=== PATIENT | female | born 1955 | race Caucasian/White ===

== ENCOUNTER 2017-10-03 19:15 | Inpatient (IN) | payer MEDICARE ==
[~2017-10-03] VITALS: Ht 165.1 cm; Wt 116.8 kg
[2017-10-03 00:40] VITALS: BP 139/61
[2017-10-03] MEDS ORDERED: GUAI100S7 PO (19:40)
[2017-10-03] MEDS ORDERED: FURO20TA2 PO (19:40)
[2017-10-03] MEDS ORDERED: PROT1TAB2 PO (19:40)
[2017-10-03] MEDS ORDERED: NADO20TA PO (19:40)
[2017-10-03] MEDS ORDERED: TRAM50TA2 PO (19:40)
[2017-10-03] MEDS ORDERED: LEVO100T5 PO (19:40)
[2017-10-03] MEDS ORDERED: SPIR100T PO (19:40)
[2017-10-03] MEDS ORDERED: MILKSUS5 PO (19:40)
[2017-10-03] MEDS ORDERED: FOLI5CAP PO (19:40)
[2017-10-03] MEDS ORDERED: LACT10SO29 PO (19:40)
[2017-10-03] MEDS ORDERED: VITATAB11 PO (19:40)
[2017-10-03 20:04] LABS: BASO % 0.2 % (0.0-1.0); EOS % 0.5 % (0.0-3.0); IMMATURE GRANULOCYTE % 1.1 % (0-0); LYMPH # 1.1 10^3/uL (1.5-4.5); LYMPH % 17.8 % (24.0-44.0); MEAN CORPUSCULAR HEMOGLOBIN 35.8 pg (27.0-33.0); MEAN CORPUSCULAR HGB CONC 34.4 g/dl (32.0-36.5); MEAN CORPUSCULAR VOLUME 104.1 fl (80.0-96.0); MONO # 0.9 10^3/uL (0.0-0.8); MONO % 14.5 % (0.0-5.0); NEUTROPHILS # 4.2 10^3/uL (1.8-7.7); NEUTROPHILS % 65.9 % (36.0-66.0); RED CELL DISTRIBUTION WIDTH 22.9 % (11.5-14.5); WHITE BLOOD COUNT 6.4 10^3/uL (4.0-10.0)
[2017-10-03 20:26] LABS: ABG BASE EXCESS 0.7 (-2.0-2.0); ABG HCO3 23.7 MEQ/L (22.0-26.0); ABG PARTIAL PRESSURE O2 75.6 mmHg (75.0-100.0); ABG STANDARD HCO3 25.1 MEQ/L (22.0-26.0); ABG TOTAL CO2 24.7 MEQ/L (23.0-31.0); ABG pH (ARTERIAL) 7.488 UNITS (7.350-7.450)
[2017-10-03 20:30] LABS: OSMOLALITY SERUM 292 MOSM/KG (280-301)
[2017-10-03 20:32] LABS: IMMATURE PLATELET FRACTION % 5.9 % (0.0-9.6); PLATELET COUNT, AUTOMATED 93 10^3/uL (150-450)
[2017-10-03] MEDS ORDERED: PANT40TA2 PO (20:38)
[2017-10-03] MEDS ORDERED: FOLI1TAB4 PO (20:38)
[2017-10-03] MEDS ORDERED: PRED20TA PO (20:38)
[2017-10-03 20:40] LABS: ALBUMIN 2.5 GM/DL (3.2-5.2); ALKALINE PHOSPHATASE 145 U/L (45-117); ALT/SGPT 48 U/L (12-78); ANION GAP 9 MEQ/L (8-16); AST/SGOT 55 U/L (7-37); BILIRUBIN,DIRECT 3.5 MG/DL (0.0-0.2); BILIRUBIN,TOTAL 8.2 MG/DL (0.2-1.0); BLOOD UREA NITROGEN 25 MG/DL (7-18); CALCIUM LEVEL 8.4 MG/DL (8.8-10.2); CARBON DIOXIDE LEVEL 28 MEQ/L (21-32); CHLORIDE LEVEL 102 MEQ/L (98-107); CREATININE FOR GFR 1.27 MG/DL (0.55-1.02); GLOMERULAR FILTRATION RATE 45.5 (>45); GLUCOSE, FASTING 82 MG/DL (80-110); POTASSIUM SERUM 4.3 MEQ/L (3.5-5.1); SODIUM LEVEL 139 MEQ/L (136-145); TOTAL PROTEIN 6.7 GM/DL (6.4-8.2)
--- NOTE | 2017-10-03 20:40 | REP ---
PORTABLE CHEST: AP portable view of the chest is performed. There is cardiomegaly and vascular congestion. There are increased interstitial markings likely representing diffuse interstitial edema. Mild alveolar opacity is also seen in the right lung base. Signed by Osei Coreas MD 10/04/2017 09:20 A
[2017-10-03 20:42] LABS: INR 1.98
[2017-10-03 20:43] LABS: METHADONE URINE NEGATIVE (NEGATIVE)
--- NOTE | 2017-10-03 20:50 | REPUSA ---
HISTORY: NO PRIOR. AMS. TECHNIQUE: Axial CT of head without contrast. DLP= 894.5 mGy-cm. This scan was performed using automa tic exposure control (radiation dose reduction software) to obtain a diagnostic image quality scan wi th patient dose as low as reasonably achievable. FINDINGS: Ventricles and sulci are of normal size for this age group. Coreas-white matter differentiati on is intact. There is no evidence of intracranial mass, mass effect, hemorrhage, or cystic lesion id entified. There is no detectable evidence of infarct. No skull fractures seen. There is a benign ap pearing partially calcified 1.1 cm nodular mass seen over the right frontal calvarium which may repre sent calcified fibroma or possible osteoma. Paranasal sinuses and mastoid sinuses are clear. IMPRESSION: Small partially calcified nodular mass over the right frontal calvarium consistent with o steoma or fibroma; otherwise, negative noncontrast head CT examination.
[2017-10-03] MEDS ORDERED: LACTULOSE 20 GM/30 ML SYRUP UD NG ONE (21:30)
[2017-10-03] MEDS ORDERED: OCTREOTIDE ACETATE 1,200 MCG in NS 238.8 ML IV SCH ×2 (22:15→23:15)
[2017-10-03 23:46] LABS: ABG BASE EXCESS 3.6 (-2.0-2.0); ABG HCO3 27.4 MEQ/L (22.0-26.0); ABG PARTIAL PRESSURE CO2 38.4 mmHg (35.0-45.0); ABG PARTIAL PRESSURE O2 101.3 mmHg (75.0-100.0); ABG STANDARD HCO3 27.7 MEQ/L (22.0-26.0); ABG TOTAL CO2 28.6 MEQ/L (23.0-31.0); ABG pH (ARTERIAL) 7.471 UNITS (7.350-7.450)
[2017-10-04] VITALS (8 sets, daily range): BP systolic 107–157; BP diastolic 53–67
[2017-10-04] MEDS: D5W/0.45% SODIUM CHLORIDE 1,000 ML IV SCH ×2 (01:20→21:07)
[2017-10-04] MEDS: PANTOPRAZOLE 40MG INJ (PROTONIX) (C9113) IV SCH ×3 (01:20→20:06)
[2017-10-04] MEDS: LACTULOSE 20 GM/30 ML SYRUP UD NG SCH ×12 (01:20→21:08)
--- NOTE | 2017-10-04 04:52 | ECGEPIP ---
Stationary ECG Study [facility] - ED Test Date: 2017-10-03 Pat Name: YING MONDRAGON Department: Room: - Gender: F [employer]: af : [id number] Requested By: HERNAN Mueller Order Number: [id number] Reading MD: Tony Adame Measurements Intervals [place] Rate: 67 P: 32 MA: 172 QRS: 29 QRSD: 98 T: 13 QT: 398 QTc: 421 Interpretive Statements SINUS RHYTHM NO PRIORS FOR COMPARISON Electronically Signed On 10-04-2017 4:52:26 EST by Tony Adame
[2017-10-04 05:33] LABS: INR 1.85
[2017-10-04 06:12] LABS: ABG BASE EXCESS 1.5 (-2.0-2.0); ABG PARTIAL PRESSURE CO2 30.4 mmHg (35.0-45.0); ABG PARTIAL PRESSURE O2 148.7 mmHg (75.0-100.0); ABG STANDARD HCO3 25.9 MEQ/L (22.0-26.0); ABG pH (ARTERIAL) 7.516 UNITS (7.350-7.450)
--- NOTE | 2017-10-04 07:34 | REP ---
Portable chest, 09:37 p.m., single AP view, the patient semi upright: Comparison is 10/03/2017. There has been interval placement of an NG tube. NG tube terminates satisfactorily in the abdominal left upper quadrant. Interstitial infiltrates and cardiomegaly are again identified, unchanged. No definite pleural effusions are identified. Signed by Osei Avila MD 10/04/2017 07:26 A
[2017-10-04 08:16] LABS: MEAN CORPUSCULAR HEMOGLOBIN 35.3 pg (27.0-33.0); MEAN CORPUSCULAR HGB CONC 33.2 g/dl (32.0-36.5); MEAN CORPUSCULAR VOLUME 106.3 fl (80.0-96.0); PLATELET COUNT, AUTOMATED 114 10^3/uL (150-450); RED CELL DISTRIBUTION WIDTH 23.5 % (11.5-14.5); WHITE BLOOD COUNT 6.2 10^3/uL (4.0-10.0)
[2017-10-04] MEDS: predniSONE 20 MG TAB NG SCH (08:36)
[2017-10-04 08:46] LABS: ALBUMIN 2.6 GM/DL (3.2-5.2); ALBUMIN/GLOBULIN RATIO 0.62 (1.00-1.93); BILIRUBIN,TOTAL 9.3 MG/DL (0.2-1.0); CALCIUM LEVEL 8.5 MG/DL (8.8-10.2); CREATININE FOR GFR 1.38 MG/DL (0.55-1.02); GLOMERULAR FILTRATION RATE 41.4 (>45); POTASSIUM SERUM 4.4 MEQ/L (3.5-5.1); TOTAL PROTEIN 6.8 GM/DL (6.4-8.2)
[2017-10-04] MEDS: NADOLOL 20MG TABLET NG SCH (09:00)
[2017-10-04] MEDS: CHLORHEXIDINE ORAL RINSE 0.12%/15ML 120ML BOTTLE MT SCH ×2 (09:00→20:06)
--- NOTE | 2017-10-04 09:38 | HPE ---
DATE OF ADMISSION: 10/03/2017 CHIEF COMPLAINT: Somnolent for the last 24 hours. HISTORY OF PRESENT ILLNESS: This is a pleasant 62-year-old female with a pertinent past medical history of lupus, cirrhosis, chronic kidney disease, and a recent hospitalization at [facility] in [place] for pulmonary edema and cirrhosis. The patient is accompanied by her son and [id number] at the bedside, because the patient is currently unresponsive. Daughter and son provided the whole history for this visit. Son states that the patient has been unresponsive the whole day and she was found on 10/03/2017 at 5:45 p.m. when he went to her house and found her sleeping and unresponsive on her bed. Son states that her talks to her everyday daily to check up on her or someone in the family is always communicating with her at some point. He states the last well known date was on 10/02 evening at 9 o'clock. The patient has a history of being noncompliant if she does not like the medication. She was recently placed on lactulose from [facility] for her cirrhosis and he is unsure if she has been taking it everyday. He notes that when he is communicating with her or seeing her that she is more tired and groggy, but not lethargic. He denies her complaining of any fevers, nausea or vomiting, or any diarrhea, but the patient is known for not communicating symptoms to her family, according to the son. He states the patient was found at bedside unresponsive, not communicative, will respond to stimuli, but will not open eyes, will just move hand away. PAST MEDICAL HISTORY: 1. Lupus. 2. Hypothyroidism. 3. Restless leg syndrome. 4. Cirrhosis. 5. Chronic kidney disease. 6. Idiopathic thrombocytopenic purpura (ITP). SURGICAL HISTORY: No known surgical history. FAMILY HISTORY: Noncontributory. SOCIAL HISTORY: Disabled from lupus. Negative for smoke. Occasional social alcohol use. Lives alone, but communicates with family members such as her son and [id number] daily. ALLERGIES: 1. CODEINE. 2. DIPHENHYDRAMINE. 3. PENICILLIN. 4. PENICILLIN CROSS REACTORS. MEDICATIONS: - folic acid 1 mg by mouth daily - furosemide 40 mg by mouth twice a day - lactulose 15 mL by mouth three times a day as needed for constipation - levothyroxine sodium 100 mcg by mouth daily - magnesium hydroxide 1 suppository as needed for constipation - nadolol 20 mg by mouth daily - pantoprazole 40 mg by mouth daily - prednisone taper currently on 20 mg by mouth until 10/07/2017 then will be on 10 mg until 10/14/2017 - spironolactone 100 mg by mouth daily REVIEW OF SYMPTOMS: Cannot be obtained from the patient as she is unresponsive and lethargic. PHYSICAL EXAMINATION: VITAL SIGNS: 97.9, pulse 81, respiratory rate 18, blood pressure 139/61, MAP of 87, pulse oximetry of 97% on 1 liter of oxygen nasal cannula. GENERAL APPEARANCE: This is a 62-year-old female who looks older than stated age who is somnolent but responsive to touch with eye opening. She is not alert or oriented currently to answer questions at this time. SKIN: Appearance jaundiced in color. HEENT: Scleral icterus is appreciated. Pupils are reactive but sluggish. NECK: Supple. No jugular venous distention (JVD), thyromegaly or carotid bruits are appreciated. HEART: Heart sounds are muffled by body habitus, but distant S1 and S2 sounds can be appreciated with regular rhythm. No murmurs or gallops can be heard I believe. CHEST: Upper apical are clear to aeration. Cannot assess bibasilar because of lack of effort on patient being somnolent. ABDOMEN: Morbidly obese patient with positive bowel sounds in all four quadrants. Nontender abdomen on palpation. Ascites can be appreciated in the upper quadrant. Unable to assess for organomegaly because of the patient's large habitus. EXTREMITIES: 2+ pitting edema appreciated up to the knees bilaterally. Multiple skin lesions appreciated on the lower extremities with weeping yellow fluid out of the pores. Pedal pulses are palpable bilaterally. NEUROLOGIC: Patient is lethargic, noncommunicative, not alert or oriented for exam. Also, strength and sensation cannot be assessed at this time. The patient's eyes are opening to gentle tactile response, but does not follow commands. LABORATORIES: Hematology: WBC 6.4, hemoglobin 8.7, hematocrit 25.3, platelets of 93. BLOOD GAS: ABG pH 7.488, ABG pCO2 32.0. Coagulation: PT 23.2, INR 1.98, APTT of 45. Chemistries: Sodium 139, potassium 4.3, chloride 102, carbon dioxide 28, BUN 25 , creatinine of 1.27, fasting glucose of 82, osmolarity of 292, lactic acid of 2.1 , calcium of 8.4, total bilirubin of 8.2, direct bilirubin of 3.5, AST of 55, ALT 48, alkaline phosphatase 145, ammonia of 98, total creatinine kinase of 211, total protein of 6.7, albumin 2.5, TSH of 0.138, Troponin of 0.02. Urine was only positive for urobilinogen of 4.0. Urine toxicology was negative for anything. IMAGING: Head CT showed small partially calcified nodular mass over the right frontal calvarium consistent with osteoma or fibroma, otherwise negative noncontrast head CT examination. Chest x-ray showed cardiomegaly, vascular congestion. Increased interstitial markings likely representing a diffuse interstitial edema. Mild alveolar opacity is seen in the right lung base. ASSESSMENT/PLAN: This is a 62-year-old female with a pertinent past medical history of lupus, ITP, recent hospitalization for cirrhosis and pulmonary edema in [facility] for 40 plus days, recently discharged on 09/29/2017 presenting today for somnolence, unresponsiveness and altered mental status for the last 24 hours. 1. Hepatic encephalopathy. Patient is currently somnolent with an elevated ammonia of 95, with a known history of was cirrhosis, was recently given lactulose and with the patient 's noncompliance, likely due to the ammonia level. Dr. Mariee, the GI doctor, has been consulted. He saw the patient in the ED and recommends to start lactulose 30 mL every 2 hours until the patient has diarrhea, then we will decrease the dose to 30 mL four times a day. Then he will do an upper endoscopy on Sunday to look to see if banding is needed. Patient will also be placed on Protonix 40 mg IV every 12 hours. 2. Known lupus. Patient is currently on a prednisone taper and is on 20 mg daily until 10/07. Will continue with prednisone taper while admitted. 3. Home medications for chronic medical problems are currently being held until the patient is awake and can take by mouth medications. 4. Diet. The patient is currently on an nothing by mouth diet. She is unable to have by mouth intake. We will hydrate the patient with D5 half normal saline running at 50 mL per hour and we will continue to monitor the patient daily with CMPs to check creatinine function and electrolytes. Admitted to Dr. Sanchez Service in the AM. My faculty preceptor for this patient encounter was physically present during the encounter and was fully available. All aspects of the patient interview, examination, medical decision making process, and medical care plan development were reviewed and approved by the faculty preceptor. The faculty preceptor is aware and concurs with the plan as stated in the body of this note and will attest to such by his/her co-signature. CLINTON
[2017-10-04] MEDS ORDERED: CEFTRIAXONE SOD 1 GM in APPROPRIATE DILUENT 1 EA IV SCH (15:00)
[2017-10-04] MEDS: rifAXIMin 550 MG TAB (XIFAXAN) NG SCH ×2 (15:07→20:06)
[2017-10-04] MEDS: GASTROGRAFIN SOLUTION 30ML PO ONE ×2 (15:07→15:15)
--- NOTE | 2017-10-04 15:16 | IPNPDOC ---
Subjective Date Seen The patient was seen on 10/04/17. Subjective Chief Complaint/HPI The patient is a 62-year-old female admitted with a reason for visit of Hepatic Encephalopathy. Events since last encounter Patient seen and examined at the bedside. Her mentation appears to be improving this a.m., as she is able to answer year, birthdate, full name, and hospital/ location correctly. Of note, the patient was initially obtunded upon arrival, and then later noted to be more agitated overnight as per bedside nursing staff. No other acute events noted. Objective Physical Examination General Exam: Positive: No Acute Distress Eye Exam: Positive: Sclera icteric ENT Exam: Positive: Atraumatic Chest Exam: Positive: Diminished, Negative: Wheezing Heart Exam: Positive: Rate Normal, Normal S1, Normal S2 Abdomen Exam: Positive: Soft, Negative: Tenderness Extremity Exam: Negative: Tenderness Assessment /Plan Plan/VTE VTE Prophylaxis Ordered?: Yes Plan Acute Hepatic Encephalopathy 2/2 Hyperammonemia from Cirrhosis Lactulose, Rifaxamin ordered Ammonia level trending downward Patient's mentation improved today compared to last night according to the patient's son who is at the bedside Liver Cirrhosis of Unclear Etiology After reviewing records from recent hospitalization from [facility] from 09/05 -09/27/17 it appears that the patient's Cirrhosis was deemed likely 2/2 ESTRELLA, after a work up that was ultimately inconclusive of a clear etiology after the patient refused Liver Biopsy for definitive diagnosis. The patient was recommended to follow up at [facility] upon discharge for evaluation for possible liver transplant MELD Score noted to be 25 here We will cont to monitor LFTs Coffee Ground Emesis EGD from recent Hospitalization revealed Single Column Grade 2 Esophageal Varices The patient does have an NG tube in place H&H has been stable GI has been consulted Cont Protonix, Nadolol as ordered Rocephin ordered for SBP prophylaxis CT Abd/Pel pending Chronic Kidney Disease Stage 3B Serum Cr appears to be similar compared to previous lab work obtained Thrombocytopenia, Hx of ITP s/p Splenectomy Platelet count noted, no indication for transfusion at this time Hx of SLE Patient previously on Plaquenil Unclear if the patient has been following with Rheum On Steroid taper from [facility]--we have continued this here Hypothyroidism Takes Levothyroxine as outpatient Morbid Obesity Complicating Medical Care DVT Prophylaxis SCDs/TEDs ordered Code Status: It seems that the patient signed a MOLST form with her PCP on 09/04 that indicated a DNR/DNI, SIGNAL MECHANIC status. However she was subsequently hospitalized at [facility] on 09/05/17 and rescinded the SIGNAL MECHANIC order, and continued DNR/DNI status--however there is no form here reflecting that. At this time, I have discussed the patient's critical clinical condition and prognosis with the patient's next of kin, son and [id number] extensively at the bedside. They have reiterated that the patient would want to be DNR/DNI, and have signed a MOLST form reflecting that. We will once again have this conversation with the patient once she is more coherent to ascertain her wishes , as it appears that she has not been compliant with her medical therapy and follow ups based on her history. Critical Condition, Poor Spare Hand Carding Prognosis VS, I&O, 24H, Fishbone Vital Signs/I&O Vital Signs Date Time Temp Pulse Resp B/P (MAP) Pulse Ox O2 Delivery O2 Flow Rate FiO2 10/04/17 12:00 97.2 88 23 113/53 (73) 97 Nasal Cannula 1.0 I&O- Last 24 Hours up to 6 AM 10/05/17 06:00 Intake Total 420 ml Balance 420 ml Laboratory Data 24H LABS Laboratory Tests 2 10/03/17 19:49: Immature Granulocyte % (Auto) 1.1H, White Blood Count 6.4, Red Blood Count 2.43L , Hemoglobin 8.7L, Hematocrit 25.3L, Mean Corpuscular Volume 104.1H, Mean Corpuscular Hemoglobin 35.8H, Mean Corpuscular Hemoglobin Concent 34.4, Red Cell Distribution Width 22.9H, Platelet Count 93L, Neutrophils (%) (Auto) 65.9, Lymphocytes (%) (Auto) 17.8L, Monocytes (%) (Auto) 14.5H, Eosinophils (%) (Auto ) 0.5, Basophils (%) (Auto) 0.2, Neutrophils # (Auto) 4.2, Lymphocytes # (Auto) 1.1L, Monocytes # (Auto) 0.9H, Eosinophils # (Auto) 0.0, Basophils # (Auto) 0.0 , Immature Granulocyte # (Auto) 0.1H, Nucleated Red Blood Cells % (auto) 0.6H, Immature Platelet Fraction 5.9, Anion Gap 9, Glomerular Filtration Rate 45.5, Osmolality 292, Lactic Acid Level 2.1*H, Calcium Level 8.4L, Aspartate Amino Transf (AST/SGOT) 55H, Alanine Aminotransferase (ALT/SGPT) 48, Alkaline Phosphatase 145H, Total Bilirubin 8.2H, Direct Bilirubin 3.5H, Ammonia 98H, Total Creatine Kinase 211H, Creatine Kinase MB 1.6, Creatine Kinase MB Relative Index 0.75, Troponin I 0.02, Total Protein 6.7, Albumin 2.5L, Albumin/Globulin Ratio 0.60L, Thyroid Stimulating Hormone (TSH) 0.138L, Salicylates Level < 1.7L , Acetaminophen Level < 2.0L, Ethyl Alcohol Level < 0.003 10/03/17 19:52: Prothrombin Time 23.2H, Prothromb Time International Ratio 1.98, Activated Partial Thromboplast Time 45.0H 10/03/17 20:05: Urine Appearance CLEAR, Urine Color JENNIFER, Urine pH 8.0, Urine Specific [place] 1.018, Urine Protein NEGATIVE, Urine Glucose (UA) NEGATIVE, Urine Ketones NEGATIVE, Urine Urobilinogen 4.0H, Urine Bilirubin NEGATIVE, Urine Leukocyte Esterase NEGATIVE, Urine Blood NEGATIVE, Urine Nitrite NEGATIVE, Urine WBC (Auto ) 1, Urine RBC (Auto) 2, Urine Hyaline Casts (Auto) 0, Urine Bacteria (Auto) NEGATIVE, Urine Squamous Epithelial Cells 0, Urine Sperm (Auto) , Urine Amphetamines Screen NEGATIVE, Urine Benzodiazepines Screen NEGATIVE, Urine Opiates Screen NEGATIVE, Urine Methadone Screen NEGATIVE, Urine Barbiturates Screen NEGATIVE, Urine Phencyclidine Screen NEGATIVE, Urine Cocaine Metabolite Screen NEGATIVE, Urine Cannabinoids Screen NEGATIVE 10/03/17 20:10: Bedside Glucose (Misc Panel) 87 10/03/17 20:16: Blood Gas Bicarbonate Standard 25.1, Arterial Blood pH 7.488H, Arterial Blood Partial Pressure CO2 32.0L, Arterial Blood Partial Pressure O2 75.6, Arterial Blood Total CO2 24.7, Arterial Blood HCO3 23.7, Arterial Blood Base Excess 0.7, Arterial Blood Oxygen Saturation 95.6 10/03/17 23:30: Lactic Acid Followup at 4 Hours 2.7*H 10/03/17 23:35: Blood Gas Bicarbonate Standard 27.7H, Arterial Blood pH 7.471H, Arterial Blood Partial Pressure CO2 38.4, Arterial Blood Partial Pressure O2 101.3H, Arterial Blood Total CO2 28.6, Arterial Blood HCO3 27.4H, Arterial Blood Base Excess 3.6H , Arterial Blood Oxygen Saturation 98.1 10/04/17 05:00: Nucleated Red Blood Cells % (auto) 0.5H, Prothrombin Time 21.9H, Prothromb Time International Ratio 1.85, Anion Gap 10, Glomerular Filtration Rate 41.4L, Blood Urea Nitrogen 26H, Creatinine 1.38H, Sodium Level 139, Potassium Level 4.4, Chloride Level 104, Carbon Dioxide Level 25, Calcium Level 8.5L, Aspartate Amino Transf (AST/SGOT) 78H, Alanine Aminotransferase (ALT/SGPT) 52, Alkaline Phosphatase 152H, Total Bilirubin 9.3H, Total Protein 6.8, Albumin 2.6L, Ammonia 72H, Albumin/Globulin Ratio 0.62L 10/04/17 06:00: Blood Gas Bicarbonate Standard 25.9, Arterial Blood pH 7.516H, Arterial Blood Partial Pressure CO2 30.4L, Arterial Blood Partial Pressure O2 148.7H, Arterial Blood Total CO2 25.0, Arterial Blood HCO3 24.0, Arterial Blood Base Excess 1.5, Arterial Blood Oxygen Saturation 99.5H CBC/BMP Laboratory Tests 10/03/17 19:49 Red Blood Count 2.43 L, Mean Corpuscular Volume 104.1 H, Mean Corpuscular Hemoglobin 35.8 H, Mean Corpuscular Hemoglobin Concent 34.4, Red Cell Distribution Width 22.9 H, Neutrophils (%) (Auto) 65.9, Lymphocytes (%) (Auto) 17.8 L, Monocytes (%) (Auto) 14.5 H, Eosinophils (%) (Auto) 0.5, Basophils (%) ( Auto) 0.2, Neutrophils # (Auto) 4.2, Lymphocytes # (Auto) 1.1 L, Monocytes # ( Auto) 0.9 H, Eosinophils # (Auto) 0.0, Basophils # (Auto) 0.0 10/03/17 23:30 10/04/17 05:00 Red Blood Count 2.55 L, Mean Corpuscular Volume 106.3 H, Mean Corpuscular Hemoglobin 35.3 H, Mean Corpuscular Hemoglobin Concent 33.2, Red Cell Distribution Width 23.5 H, Calcium Level 8.5 L, Aspartate Amino Transf (AST/SGOT ) 78 H, Alanine Aminotransferase (ALT/SGPT) 52, Alkaline Phosphatase 152 H, Total Bilirubin 9.3 H, Total Protein 6.8, Albumin 2.6 L Microbiology Microbiology 10/03/17 Blood Culture, Received Pending 10/03/17 Blood Culture, Received Pending 10/03/17 Respiratory Virus Panel (PCR) ([facility]) - Final, Complete 10/03/17 Urine Culture, Received Pending NANCIE CARREON MD Oct 04, 2017 15:16
[2017-10-04] MEDS ORDERED: GASTROGRAFIN SOLUTION 30ML (Q9963) PO ONE (15:45)
[2017-10-04] MEDS: VANCOMYCIN HCL 1,000 MG, VIAL MATE ADAPTER 1 EACH in D5W 250 ML IV SCH (16:24)
--- NOTE | 2017-10-04 16:38 | PHACANCOPD ---
PHARMACY VANCOMYCIN DOSING Pt Demographics Demographics Patient Age:62 , Weight:116.600 , Gender: female Adjusted Body Weight Date: 10/04/17, BMI = 42.8 Events Past 24 Hours Events Past 24 Hours: YES: Pending Diagnostics Vancomycin Vancomycin indication: BACTEREMIA Vancomycin Target Ranges: 15-20 mcg/ml Vancomycin Load Y/N: Yes Load Dose Date Time Vancomycin Load Dose: 2g Date: 10/04/17 Time: 1700 Vancomycin Dose Date: 10/04/17. Current Vancomycin Dose: [1g Iv Q12H] Intermittent Dosing?: No Labs Labs Item Value Date Time White Blood Count 6.2 10^3/uL 10/04/17 0500 White Blood Count 6.4 10^3/uL 10/03/17 194 Creatinine 1.38 MG/DL H 10/04/17 0500 Lactic Acid Level 2.1 MMOL/L *H 10/03/17 194 Lactic Acid Followup at 4 Hours 2.7 MMOL/L *H 10/03/17 2330 Micro Microbiology 10/03/17 Blood Culture - Preliminary, Resulted 10/03/17 Blood Culture, Received Pending 10/03/17 Respiratory Virus Panel (PCR) ([facility]) - Final, Complete 10/03/17 Urine Culture, Received Pending Creatinine Clearance Date:10/04/17. Estimated Creatinine Clearance: [~40 ml/min]. Pending Labs Vancomycin trough scheduled 10/06/17 @1600, prior to the 5th dose Assessment and Plan Maintaining Current Dose?: Yes Reason for dose change: No Dose Change Pharmacist Note Pharmacist Note Date: 10/04/17. Pharmacist note: Day #1 empiric vancomycin tx initiated with a 2g loading dose, followed by a maintenance regimen of 1g IV Q12H for the treatment of bacteremia - aiming for a goal trough of 15-20mcg/ml. The patient was recently discharged 09/29/17 from [facility] where she was being treated for cirrhosis and pulmonary edema. The patient has a PMH of CKD. No PMH of MRSA or vanco use here at [facility]. WBC is currently WNL, patient is afebrile, but lactic acid is elevated. 10/03 CXR showed interstitial infiltrates. Urine and blood cultures are pending. 10/23 blood cultures thus far show gram positive cocci - pending final results. A vancomycin trough has been scheduled for 10/06/17 @1600, prior to the 5th dose. We will continue to monitor and make dose adjustments if needed. B[facility]OP [facility] Oct 04, 2017 16:38
[2017-10-04] MEDS ORDERED: VANCOMYCIN HCL 1,000 MG, VIAL MATE ADAPTER 1 EACH in D5W 250 ML IV ONE (18:00)
[2017-10-04] MEDS ORDERED: traMADol 50 MG TAB PO ONE (18:45)
[2017-10-04] MEDS ORDERED: ONDANSETRON 4 MG TAB (S0181) NG PRN (20:45)
[2017-10-04] MEDS ORDERED: ONDANSETRON 4MG/2ML VIAL (J2405) IV PRN (21:30)
[2017-10-04] MEDS ORDERED: IBUPROFEN 400 MG TAB PO ONE (23:15)
[2017-10-05 00:19] VITALS: BP 141/67
[2017-10-05] MEDS: LACTULOSE 20 GM/30 ML SYRUP UD NG SCH ×6 (00:56→10:00)
[2017-10-05 03:35] VITALS: BP 138/65
[2017-10-05] MEDS: VANCOMYCIN HCL 1,000 MG, VIAL MATE ADAPTER 1 EACH in D5W 250 ML IV SCH ×2 (05:17→16:28)
[2017-10-05 05:22] LABS: MEAN CORPUSCULAR HGB CONC 33.6 g/dl (32.0-36.5); MEAN CORPUSCULAR VOLUME 104.3 fl (80.0-96.0); RED CELL DISTRIBUTION WIDTH 23.2 % (11.5-14.5); WHITE BLOOD COUNT 6.1 10^3/uL (4.0-10.0)
[2017-10-05 05:27] LABS: PLATELET COUNT, AUTOMATED 98 10^3/uL (150-450)
[2017-10-05 05:28] LABS: IMMATURE PLATELET FRACTION % 4.5 % (0.0-9.6)
[2017-10-05 05:37] LABS: INR 2.09
[2017-10-05 05:38] LABS: ALBUMIN 2.2 GM/DL (3.2-5.2); ALBUMIN/GLOBULIN RATIO 0.58 (1.00-1.93); BILIRUBIN,TOTAL 9.1 MG/DL (0.2-1.0); CALCIUM LEVEL 8.1 MG/DL (8.8-10.2); CREATININE FOR GFR 1.43 MG/DL (0.55-1.02); GLOMERULAR FILTRATION RATE 39.7 (>45)
[2017-10-05 08:00] VITALS: BP 152/68
[2017-10-05] MEDS: PANTOPRAZOLE 40MG INJ (PROTONIX) (C9113) IV SCH ×2 (08:59→20:41)
[2017-10-05] MEDS: predniSONE 20 MG TAB NG SCH (09:00)
[2017-10-05] MEDS: rifAXIMin 550 MG TAB (XIFAXAN) NG SCH ×2 (09:00→20:41)
[2017-10-05] MEDS: NADOLOL 20MG TABLET NG SCH (09:00)
[2017-10-05] MEDS: CHLORHEXIDINE ORAL RINSE 0.12%/15ML 120ML BOTTLE MT SCH ×2 (09:00→20:41)
--- NOTE | 2017-10-05 11:35 | IPNPDOC ---
Subjective Date Seen The patient was seen on 10/05/17. Subjective Chief Complaint/HPI The patient is a 62-year-old female admitted with a reason for visit of Hepatic Encephalopathy. Events since last encounter Patient seen and examined at the bedside. Appears less confused this morning, notes that she does not have any significant pain at this time. Reports that she is hungry, and would like to eat. No acute overnight events noted. Objective Physical Examination General Exam: Positive: Cooperative, No Acute Distress Eye Exam: Positive: Sclera icteric ENT Exam: Positive: Atraumatic Chest Exam: Positive: Diminished, Negative: Wheezing Heart Exam: Positive: Rate Normal, Normal S1, Normal S2 Abdomen Exam: Positive: Soft, Negative: Tenderness Extremity Exam: Negative: Tenderness Assessment /Plan Plan/VTE VTE Prophylaxis Ordered?: Yes Plan Acute Hepatic Encephalopathy 2/2 Hyperammonemia from Cirrhosis Lactulose, Rifaximin ordered Ammonia level trending downward Patient's mentation continues to improve Liver Cirrhosis of Unclear Etiology After reviewing records from recent hospitalization from [facility] from 09/05 -09/27/17 it appears that the patient's Cirrhosis was deemed likely 2/2 ESTRELLA, after a work up that was ultimately inconclusive of a clear etiology after the patient refused Liver Biopsy for definitive diagnosis. The patient was recommended to follow up at [facility] upon discharge for evaluation for possible liver transplant MELD Score noted to be 25 here We will cont to monitor LFTs Coffee Ground Emesis EGD from recent Hospitalization revealed Single Column Grade 2 Esophageal Varices The patient does have an NG tube in place H&H has been stable GI on board for EGD Cont Protonix, Nadolol as ordered Patient has refused a CT Scan of the Abd/Pelvis here Gram Positive Cocci Bacteremia Patient noted to have 1 bottle grow Gram Positive Cocci in Clusters, 2nd bottle negative Likely a contaminant as the patient does not have any overt source of infectious etiology at this time We will wait for further speciation of that bottle The patient has been empirically started on vancomycin Repeat blood cultures have been ordered for this a.m. We will follow-up Chronic Kidney Disease Stage 3B Serum Cr appears to be similar compared to previous lab work obtained Thrombocytopenia, Hx of ITP s/p Splenectomy Platelet count noted, no indication for transfusion at this time Hx of SLE Patient previously on Plaquenil Unclear if the patient has been following with Rheum On Steroid taper from [facility]--we have continued this here Hypothyroidism Takes Levothyroxine as outpatient Morbid Obesity Complicating Medical Care DVT Prophylaxis SCDs/TEDs ordered Code Status: DNR/DNI Critical Condition, Poor Nursing Home Prognosis Dispo--pending clinical improvement VS, I&O, 24H, Fishbone Vital Signs/I&O Vital Signs Date Time Temp Pulse Resp B/P (MAP) Pulse Ox O2 Delivery O2 Flow Rate FiO2 10/05/17 08:00 98.2 79 24 152/68 (96) 96 Nasal Cannula 1.0 I&O- Last 24 Hours up to 6 AM 10/06/17 06:00 Intake Total 60 ml Balance 60 ml Laboratory Data 24H LABS Laboratory Tests 2 10/04/17 16:04: Ammonia 93H 10/05/17 04:54: Ammonia 65H, Nucleated Red Blood Cells % (auto) 1.2H, Immature Platelet Fraction 4.5, Prothrombin Time 24.2H, Prothromb Time International Ratio 2.09, Anion Gap 9, Glomerular Filtration Rate 39.7L, Blood Urea Nitrogen 23H, Creatinine 1.43H, Sodium Level 141, Potassium Level 4.0, Chloride Level 104, Carbon Dioxide Level 28, Calcium Level 8.1L, Aspartate Amino Transf (AST/SGOT) 71H, Alanine Aminotransferase (ALT/SGPT) 46, Alkaline Phosphatase 136H, Total Bilirubin 9.1H, Total Protein 6.0L, Albumin 2.2L, Albumin/Globulin Ratio 0.58L CBC/BMP Laboratory Tests 10/04/17 16:04 10/05/17 04:54 Red Blood Count 2.34 L, Mean Corpuscular Volume 104.3 H, Mean Corpuscular Hemoglobin 35.0 H, Mean Corpuscular Hemoglobin Concent 33.6, Red Cell Distribution Width 23.2 H, Calcium Level 8.1 L, Aspartate Amino Transf (AST/SGOT ) 71 H, Alanine Aminotransferase (ALT/SGPT) 46, Alkaline Phosphatase 136 H, Total Bilirubin 9.1 H, Total Protein 6.0 L, Albumin 2.2 L Microbiology Microbiology 10/05/17 Blood Culture, Received Pending 10/05/17 Blood Culture, Received Pending 10/03/17 Blood Culture - Preliminary, Resulted 10/03/17 Blood Culture - Preliminary, Resulted No growth after 24 hours . All specim... 10/03/17 Respiratory Virus Panel (PCR) ([facility]) - Final, Complete 10/03/17 Urine Culture - Final, Complete NANCIE CARREON MD Oct 05, 2017 11:35
[2017-10-05 12:00] VITALS: BP 151/70
[2017-10-05 16:00] VITALS: BP 133/63
[2017-10-05] MEDS: LACTULOSE 20 GM/30 ML SYRUP UD PO SCH ×2 (16:00→20:41)
[2017-10-05] MEDS: D5W/0.45% SODIUM CHLORIDE 1,000 ML IV SCH (17:52)
[2017-10-05 20:00] VITALS: BP 134/64
[2017-10-06] VITALS: BP 109/59
[2017-10-06 02:00] VITALS: BP 120/57
[2017-10-06 04:00] VITALS: BP 105/56
[2017-10-06 04:50] LABS: MEAN CORPUSCULAR HEMOGLOBIN 35.1 pg (27.0-33.0); MEAN CORPUSCULAR HGB CONC 34.1 g/dl (32.0-36.5); MEAN CORPUSCULAR VOLUME 103.1 fl (80.0-96.0); RED CELL DISTRIBUTION WIDTH 21.6 % (11.5-14.5); WHITE BLOOD COUNT 6.4 10^3/uL (4.0-10.0)
[2017-10-06 04:54] LABS: PLATELET COUNT, AUTOMATED 76 10^3/uL (150-450)
[2017-10-06 05:00] LABS: INR 2.01
[2017-10-06 05:09] LABS: ALBUMIN/GLOBULIN RATIO 0.54 (1.00-1.93); BILIRUBIN,TOTAL 7.7 MG/DL (0.2-1.0); CALCIUM LEVEL 8.1 MG/DL (8.8-10.2); CREATININE FOR GFR 1.08 MG/DL (0.55-1.02); GLOMERULAR FILTRATION RATE 54.9 (>45); TOTAL PROTEIN 5.7 GM/DL (6.4-8.2)
[2017-10-06] MEDS: VANCOMYCIN HCL 1,000 MG, VIAL MATE ADAPTER 1 EACH in D5W 250 ML IV SCH (05:20)
[2017-10-06] MEDS ORDERED: IBUPROFEN 400 MG TAB PO ONE (05:30)
[2017-10-06 08:00] VITALS: BP 109/58
[2017-10-06] MEDS: PANTOPRAZOLE 40MG INJ (PROTONIX) (C9113) IV SCH ×2 (08:13→22:11)
[2017-10-06] MEDS: LACTULOSE 20 GM/30 ML SYRUP UD PO SCH ×3 (08:13→22:12)
[2017-10-06] MEDS: predniSONE 20 MG TAB NG SCH (08:13)
[2017-10-06] MEDS: NADOLOL 20MG TABLET NG SCH (08:15)
[2017-10-06] MEDS: CHLORHEXIDINE ORAL RINSE 0.12%/15ML 120ML BOTTLE MT SCH (08:15)
[2017-10-06] MEDS: rifAXIMin 550 MG TAB (XIFAXAN) NG SCH ×2 (08:15→22:12)
--- NOTE | 2017-10-06 11:23 | IPNPDOC ---
Subjective Date Seen The patient was seen on 10/06/17. Subjective Chief Complaint/HPI The patient is a 62-year-old female admitted with a reason for visit of Hepatic Encephalopathy. Events since last encounter Patient seen and examined at the bedside. Her mentation continues to improve, and she is able to hold a conversation this morning. She reports that she is very hungry this morning, and wants to have a regular diet. She denies any acute complaints of pain at this time. Objective Physical Examination General Exam: Positive: Alert, Cooperative, No Acute Distress Eye Exam: Negative: Sclera icteric ENT Exam: Positive: Atraumatic Chest Exam: Positive: Diminished, Negative: Wheezing Heart Exam: Positive: Rate Normal, Normal S1, Normal S2 Abdomen Exam: Positive: Soft, Negative: Tenderness Extremity Exam: Negative: Tenderness Psych Exam: Positive: Oriented x 3 Assessment /Plan Plan/VTE VTE Prophylaxis Ordered?: Yes Plan Acute Hepatic Encephalopathy 2/2 Hyperammonemia from Cirrhosis Lactulose, Rifaximin ordered Ammonia level trending downward Patient's mentation continues to improve today--more readily able to hold a conversation this morning Liver Cirrhosis of Unclear Etiology After reviewing records from recent hospitalization from [facility] from 09/05 -09/27/17 it appears that the patient's Cirrhosis was deemed likely 2/2 ESTRELLA, after a work up that was ultimately inconclusive of a clear etiology after the patient refused Liver Biopsy for definitive diagnosis. The patient was recommended to follow up at [facility] upon discharge for evaluation for possible liver transplant MELD Score noted to be 25 here We will cont to monitor LFTs Coffee Ground Emesis, resolved EGD from recent Hospitalization revealed Single Column Grade 2 Esophageal Varices H&H has slightly downtrended likely 2/2 IVF Hydration--no indication for transfusion at this time, we will cont to serially trend The patient's NG tube was discontinued on 10/05/17 and she has been able to tolerate a PO Diet GI on board for EGD Cont Protonix, Nadolol as ordered Patient has refused a CT Scan of the Abd/Pelvis here Gram Positive Cocci Bacteremia--Staph Epidermis likely 2/2 Contamination Patient noted to have 1 bottle grow Staph Epidermis, 2nd bottle negative from Repeat Blood Cultures negative We will discontinue IV Abx as there does not appear to be an active source of infection at this time Chronic Kidney Disease Stage 3B Serum Cr appears to be similar compared to previous lab work obtained Thrombocytopenia, Hx of ITP s/p Splenectomy Platelet count noted, no indication for transfusion at this time Hx of SLE Patient previously on Plaquenil Unclear if the patient has been following with Rheum On Steroid taper from [facility]--we have continued this here Hypothyroidism Cont Levothyroxine Morbid Obesity Complicating Medical Care DVT Prophylaxis SCDs/TEDs ordered Code Status: DNR/DNI Critical Condition, Poor Fdc Prognosis Dispo--pending clinical improvement, PT ordered for functional optimization. The patient has been downgraded to Med/Surg. VS, I&O, [facility] Vital Signs/I&O Vital Signs Date Time Temp Pulse Resp B/P (MAP) Pulse Ox O2 Delivery O2 Flow Rate FiO2 10/06/17 08:15 68 115/58 10/06/17 08:00 Nasal Cannula 1.0 10/06/17 08:00 98.7 20 95 Laboratory Data 24H LABS Laboratory Tests 2 10/06/17 04:18: Nucleated Red Blood Cells % (auto) 0.6H, Prothrombin Time 23.5H, Prothromb Time International Ratio 2.01, Anion Gap 5L, Glomerular Filtration Rate 54.9, Blood Urea Nitrogen 19H, Creatinine 1.08H, Sodium Level 139, Potassium Level 4.0, Chloride Level 104, Carbon Dioxide Level 30, Calcium Level 8.1L, Aspartate Amino Transf (AST/SGOT) 63H, Alanine Aminotransferase (ALT/SGPT) 42, Alkaline Phosphatase 129H, Total Bilirubin 7.7H, Total Protein 5.7L, Albumin 2.0L, Ammonia 47H, Albumin/Globulin Ratio 0.54L CBC/BMP Laboratory Tests 10/06/17 04:18 Red Blood Count 2.25 L, Mean Corpuscular Volume 103.1 H, Mean Corpuscular Hemoglobin 35.1 H, Mean Corpuscular Hemoglobin Concent 34.1, Red Cell Distribution Width 21.6 H, Calcium Level 8.1 L, Aspartate Amino Transf (AST/SGOT ) 63 H, Alanine Aminotransferase (ALT/SGPT) 42, Alkaline Phosphatase 129 H, Total Bilirubin 7.7 H, Total Protein 5.7 L, Albumin 2.0 L Microbiology Microbiology 10/05/17 Blood Culture - Preliminary, Resulted No growth after 24 hours . All specim... 10/05/17 Blood Culture - Preliminary, Resulted No growth after 24 hours . All specim... 10/03/17 Blood Culture - Final, Complete Staphylococcus Epidermidis 10/03/17 Blood Culture - Preliminary, Resulted No Growth after 48 hours. All Specime... 10/03/17 Respiratory Virus Panel (PCR) ([facility]) - Final, Complete 10/03/17 Urine Culture - Final, Complete NANCIE CARREON MD Oct 06, 2017 11:23
[2017-10-06] MEDS: LEVOTHYROXINE 100MCG TABLET (0.1MG) PO SCH (11:37)
[2017-10-06 14:00] VITALS: BP 141/73
[2017-10-06 22:00] VITALS: BP 132/60
[2017-10-07 05:55] LABS: MEAN CORPUSCULAR HEMOGLOBIN 35.4 pg (27.0-33.0); MEAN CORPUSCULAR VOLUME 104.1 fl (80.0-96.0); PLATELET COUNT, AUTOMATED 78 10^3/uL (150-450); RED CELL DISTRIBUTION WIDTH 22.1 % (11.5-14.5)
[2017-10-07] MEDS: LEVOTHYROXINE 100MCG TABLET (0.1MG) PO SCH (05:55)
[2017-10-07 05:56] LABS: IMMATURE PLATELET FRACTION % 4.7 % (0.0-9.6)
[2017-10-07 06:00] VITALS: BP 136/67
[2017-10-07 06:03] LABS: INR 1.58
[2017-10-07 06:24] LABS: ALBUMIN 2.1 GM/DL (3.2-5.2); ALBUMIN/GLOBULIN RATIO 0.49 (1.00-1.93); BILIRUBIN,TOTAL 7.8 MG/DL (0.2-1.0); CALCIUM LEVEL 7.9 MG/DL (8.8-10.2); CREATININE FOR GFR 1.13 MG/DL (0.55-1.02); GLOMERULAR FILTRATION RATE 52.1 (>45); POTASSIUM SERUM 4.2 MEQ/L (3.5-5.1); TOTAL PROTEIN 6.4 GM/DL (6.4-8.2)
[2017-10-07] MEDS: predniSONE 20 MG TAB NG SCH (08:29)
[2017-10-07] MEDS: PANTOPRAZOLE 40MG INJ (PROTONIX) (C9113) IV SCH ×2 (08:29→20:39)
[2017-10-07] MEDS: rifAXIMin 550 MG TAB (XIFAXAN) NG SCH ×2 (08:29→20:39)
[2017-10-07] MEDS: NADOLOL 20MG TABLET NG SCH (08:29)
[2017-10-07] MEDS: LACTULOSE 20 GM/30 ML SYRUP UD PO SCH ×3 (08:29→20:39)
[2017-10-07] MEDS ORDERED: SENOKOT S TAB PO PRN (08:30)
--- NOTE | 2017-10-07 12:53 | IPNPDOC ---
Subjective Date Seen The patient was seen on 10/07/17. Subjective Chief Complaint/HPI The patient is a 62-year-old female admitted with a reason for visit of Hepatic Encephalopathy. Events since last encounter Patient seen and examined at the bedside. She states that she is feeling much better today, and notes that she has been able to tolerate a by mouth diet without any acute complaints. Does state that she does have some generalized weakness from being in the hospital for a few days. No acute overnight events noted. Objective Physical Examination General Exam: Positive: Alert, Cooperative, No Acute Distress Eye Exam: Negative: Sclera icteric ENT Exam: Positive: Atraumatic Chest Exam: Positive: Diminished, Negative: Wheezing Heart Exam: Positive: Rate Normal, Normal S1, Normal S2 Abdomen Exam: Positive: Soft, Negative: Tenderness Extremity Exam: Negative: Tenderness Psych Exam: Positive: Oriented x 3 Assessment /Plan Plan/VTE VTE Prophylaxis Ordered?: Yes Plan Acute Hepatic Encephalopathy 2/2 Hyperammonemia from Cirrhosis Lactulose, Rifaximin ordered Ammonia level trending downward Patient's mentation continues to improve today--mentation close to baseline Liver Cirrhosis of Unclear Etiology After reviewing records from recent hospitalization from [facility] from 09/05 -09/27/17 it appears that the patient's Cirrhosis was deemed likely 2/2 ESTRELLA, after a work up that was ultimately inconclusive of a clear etiology after the patient refused Liver Biopsy for definitive diagnosis. [facility] for possible liver transplant MELD Score noted to be 25 here We will cont to monitor LFTs Coffee Ground Emesis, resolved EGD from recent Hospitalization revealed Single Column Grade 2 Esophageal Varices H&H stable The patient's NG tube was discontinued on 10/05/17 and she has been able to tolerate a PO Diet GI on board for possible EGD Cont Protonix, Nadolol as ordered Patient has refused a CT Scan of the Abd/Pelvis here Gram Positive Cocci Bacteremia--Staph Epidermis likely 2/2 Contamination Patient noted to have 1 bottle grow Staph Epidermis, 2nd bottle negative from Repeat Blood Cultures negative We will discontinue IV Abx as there does not appear to be an active source of infection at this time Chronic Kidney Disease Stage 3B Serum Cr appears to be similar compared to previous lab work obtained Thrombocytopenia, Hx of ITP s/p Splenectomy Platelet count noted, no indication for transfusion at this time Hx of SLE Patient previously on Plaquenil Unclear if the patient has been following with Rheum On Steroid taper from [facility]--we have continued this here Hypothyroidism Cont Levothyroxine Morbid Obesity Complicating Medical Care DVT Prophylaxis SCDs/TEDs ordered Code Status: DNR/DNI Poor Fpc Prognosis Dispo--pending clinical improvement, PT on board for functional optimization. VS, I&O, 24H, Fishbone Vital Signs/I&O Vital Signs Date Time Temp Pulse Resp B/P (MAP) Pulse Ox O2 Delivery O2 Flow Rate FiO2 10/07/17 10:09 Nasal Cannula 1.0 10/07/17 08:29 80 142/78 10/07/17 06:00 96.2 17 94 I&O- Last 24 Hours up to 6 AM 10/08/17 06:00 Intake Total 240 ml Balance 240 ml Laboratory Data 24H LABS Laboratory Tests 2 10/07/17 05:33: Nucleated Red Blood Cells % (auto) 0.5H, Immature Platelet Fraction 4.7, Prothrombin Time 19.3H, Prothromb Time International Ratio 1.58, Anion Gap 7L, Glomerular Filtration Rate 52.1, Blood Urea Nitrogen 19H, Creatinine 1.13H, Sodium Level 139, Potassium Level 4.2, Chloride Level 105, Carbon Dioxide Level 27, Calcium Level 7.9L, Aspartate Amino Transf (AST/SGOT) 65H, Alanine Aminotransferase (ALT/SGPT) 44, Alkaline Phosphatase 139H, Total Bilirubin 7.8H , Total Protein 6.4, Albumin 2.1L, Albumin/Globulin Ratio 0.49L CBC/BMP Laboratory Tests 10/07/17 05:33 Red Blood Count 2.46 L, Mean Corpuscular Volume 104.1 H, Mean Corpuscular Hemoglobin 35.4 H, Mean Corpuscular Hemoglobin Concent 34.0, Red Cell Distribution Width 22.1 H, Calcium Level 7.9 L, Aspartate Amino Transf (AST/SGOT ) 65 H, Alanine Aminotransferase (ALT/SGPT) 44, Alkaline Phosphatase 139 H, Total Bilirubin 7.8 H, Total Protein 6.4, Albumin 2.1 L Microbiology Microbiology 10/05/17 Blood Culture - Preliminary, Resulted No Growth after 48 hours. All Specime... 10/05/17 Blood Culture - Preliminary, Resulted No Growth after 48 hours. All Specime... 10/03/17 Blood Culture - Final, Complete Staphylococcus Epidermidis 10/03/17 Blood Culture - Preliminary, Resulted No Growth after 72 hours. All specime... 10/03/17 Respiratory Virus Panel (PCR) ([facility]) - Final, Complete 10/03/17 Urine Culture - Final, Complete NANCIE CARREON MD Oct 07, 2017 12:53
[2017-10-07] MEDS: FUROSEMIDE 40 MG TAB PO SCH (13:11)
[2017-10-07] MEDS: SPIRONOLACTONE 50 MG TAB PO SCH (13:11)
[2017-10-07 14:00] VITALS: BP 117/60
[2017-10-07 22:00] VITALS: BP 129/58
[2017-10-08] MEDS ORDERED: FLUCONAZOLE 100 MG TAB PO ONE (02:00)
[2017-10-08 06:00] VITALS: BP 116/86
[2017-10-08 06:02] LABS: MEAN CORPUSCULAR HEMOGLOBIN 35.5 pg (27.0-33.0); MEAN CORPUSCULAR HGB CONC 33.7 g/dl (32.0-36.5); MEAN CORPUSCULAR VOLUME 105.3 fl (80.0-96.0); RED CELL DISTRIBUTION WIDTH 22.2 % (11.5-14.5); WHITE BLOOD COUNT 6.2 10^3/uL (4.0-10.0)
[2017-10-08 06:03] LABS: PLATELET COUNT, AUTOMATED 74 10^3/uL (150-450)
[2017-10-08 06:06] LABS: IMMATURE PLATELET FRACTION % 6.3 % (0.0-9.6)
[2017-10-08] MEDS: LEVOTHYROXINE 100MCG TABLET (0.1MG) PO SCH (06:07)
[2017-10-08 06:18] LABS: INR 1.93
[2017-10-08 06:27] LABS: ALBUMIN 2.2 GM/DL (3.2-5.2); ALBUMIN/GLOBULIN RATIO 0.51 (1.00-1.93); BILIRUBIN,TOTAL 7.3 MG/DL (0.2-1.0); CALCIUM LEVEL 8.5 MG/DL (8.8-10.2); CREATININE FOR GFR 1.24 MG/DL (0.55-1.02); GLOMERULAR FILTRATION RATE 46.8 (>45); POTASSIUM SERUM 4.4 MEQ/L (3.5-5.1); TOTAL PROTEIN 6.5 GM/DL (6.4-8.2)
[2017-10-08] MEDS: rifAXIMin 550 MG TAB (XIFAXAN) NG SCH ×2 (09:35→21:41)
[2017-10-08] MEDS: PANTOPRAZOLE 40MG INJ (PROTONIX) (C9113) IV SCH ×2 (09:35→21:41)
[2017-10-08] MEDS: SPIRONOLACTONE 50 MG TAB PO SCH (09:35)
[2017-10-08] MEDS: LACTULOSE 20 GM/30 ML SYRUP UD PO SCH ×3 (09:35→21:41)
[2017-10-08] MEDS: NADOLOL 20MG TABLET NG SCH (09:36)
[2017-10-08] MEDS: predniSONE 10 MG TAB PO SCH (09:36)
[2017-10-08] MEDS: FUROSEMIDE 40 MG TAB PO SCH (09:36)
--- NOTE | 2017-10-08 11:52 | IPNPDOC ---
Subjective Date Seen The patient was seen on 10/08/17. Subjective Chief Complaint/HPI The patient is a 62-year-old female admitted with a reason for visit of Hepatic Encephalopathy. Events since last encounter Patient seen and examine at the bedside. States that she is feeling much better , and is back to feeling like her normal self. She notes that she is eager to work with physical therapy today to get back to her baseline functional status. She tells me that she will be living with her mother after discharge. Objective Physical Examination General Exam: Positive: Alert, Cooperative, No Acute Distress Eye Exam: Negative: Sclera icteric ENT Exam: Positive: Atraumatic Chest Exam: Positive: Diminished, Negative: Wheezing Heart Exam: Positive: Rate Normal, Normal S1, Normal S2 Abdomen Exam: Positive: Soft, Negative: Tenderness Extremity Exam: Negative: Tenderness Psych Exam: Positive: Oriented x 3 Assessment /Plan Plan/VTE VTE Prophylaxis Ordered?: Yes Plan Acute Hepatic Encephalopathy 2/2 Hyperammonemia from Cirrhosis Lactulose, Rifaximin ordered Ammonia level has normalized Patient's mentation back to baseline Liver Cirrhosis of Unclear Etiology After reviewing records from recent hospitalization from [facility] from 09/05 -09/27/17 it appears that the patient's Cirrhosis was deemed likely 2/2 ESTRELLA, after a work up that was ultimately inconclusive of a clear etiology after the patient refused Liver Biopsy for definitive diagnosis. The patient was recommended to follow up at [facility] upon discharge for evaluation for possible liver transplant MELD Score noted to be 25 here We will cont to monitor LFTs Coffee Ground Emesis, resolved EGD from recent Hospitalization revealed Single Column Grade 2 Esophageal Varices H&H stable The patient's NG tube was discontinued on 10/05/17 and she has been able to tolerate a PO Diet Cont Protonix, Nadolol as ordered Gram Positive Cocci Bacteremia--Staph Epidermis likely 2/2 Contamination Patient noted to have 1 bottle grow Staph Epidermis, 2nd bottle negative from Repeat Blood Cultures negative We will discontinue IV Abx as there does not appear to be an active source of infection at this time Chronic Kidney Disease Stage 3B Serum Cr appears to be similar compared to previous lab work obtained Thrombocytopenia, Hx of ITP s/p Splenectomy Platelet count noted, no indication for transfusion at this time Hx of SLE Patient previously on Plaquenil Unclear if the patient has been following with Rheum On Steroid taper from [facility]--we have continued this here Hypothyroidism Cont Levothyroxine Morbid Obesity Complicating Medical Care DVT Prophylaxis SCDs/TEDs ordered Code Status: DNR/DNI Poor Correction Prognosis Dispo--pending clinical improvement, PT on board for functional optimization. VS, I&O, 24H, Fishbone Vital Signs/I&O Vital Signs Date Time Temp Pulse Resp B/P (MAP) Pulse Ox O2 Delivery O2 Flow Rate FiO2 10/08/17 09:36 74 120/82 10/08/17 06:00 98.6 18 95 Room Air 10/07/17 21:00 1.0 I&O- Last 24 Hours up to 6 AM 10/09/17 06:00 Intake Total 360 ml Balance 360 ml Laboratory Data 24H LABS Laboratory Tests 2 10/08/17 05:49: Nucleated Red Blood Cells % (auto) 0.8H, Immature Platelet Fraction 6.3, Prothrombin Time 22.7H, Prothromb Time International Ratio 1.93, Anion Gap 5L, Glomerular Filtration Rate 46.8, Blood Urea Nitrogen 21H, Creatinine 1.24H, Sodium Level 137, Potassium Level 4.4, Chloride Level 102, Carbon Dioxide Level 30, Calcium Level 8.5L, Aspartate Amino Transf (AST/SGOT) 61H, Alanine Aminotransferase (ALT/SGPT) 43, Alkaline Phosphatase 141H, Total Bilirubin 7.3H , Total Protein 6.5, Albumin 2.2L, Ammonia 23, Albumin/Globulin Ratio 0.51L CBC/BMP Laboratory Tests 10/08/17 05:49 Red Blood Count 2.45 L, Mean Corpuscular Volume 105.3 H, Mean Corpuscular Hemoglobin 35.5 H, Mean Corpuscular Hemoglobin Concent 33.7, Red Cell Distribution Width 22.2 H, Calcium Level 8.5 L, Aspartate Amino Transf (AST/SGOT ) 61 H, Alanine Aminotransferase (ALT/SGPT) 43, Alkaline Phosphatase 141 H, Total Bilirubin 7.3 H, Total Protein 6.5, Albumin 2.2 L Microbiology Microbiology 10/05/17 Blood Culture - Preliminary, Resulted No Growth after 72 hours. All specime... 10/05/17 Blood Culture - Preliminary, Resulted No Growth after 72 hours. All specime... 10/03/17 Blood Culture - Final, Complete Staphylococcus Epidermidis 12/13/17 Blood Culture - Preliminary, Resulted No Growth after 72 hours. All specime... 10/03/17 Respiratory Virus Panel (PCR) ([facility]) - Final, Complete 10/03/17 Urine Culture - Final, Complete NANCIE CARREON MD Oct 08, 2017 11:52
[2017-10-08 14:00] VITALS: BP 128/66
[2017-10-08 22:00] VITALS: BP 118/61
[2017-10-09] MEDS: LEVOTHYROXINE 100MCG TABLET (0.1MG) PO SCH (05:53)
[2017-10-09 06:00] VITALS: BP 118/56
[2017-10-09 06:44] LABS: MEAN CORPUSCULAR HEMOGLOBIN 35.8 pg (27.0-33.0); MEAN CORPUSCULAR VOLUME 105.3 fl (80.0-96.0); RED CELL DISTRIBUTION WIDTH 21.9 % (11.5-14.5)
[2017-10-09 06:56] LABS: ALBUMIN 2.1 GM/DL (3.2-5.2); ALBUMIN/GLOBULIN RATIO 0.47 (1.00-1.93); BILIRUBIN,TOTAL 6.9 MG/DL (0.2-1.0); CALCIUM LEVEL 8.3 MG/DL (8.8-10.2); CREATININE FOR GFR 1.33 MG/DL (0.55-1.02); GLOMERULAR FILTRATION RATE 43.2 (>45); POTASSIUM SERUM 4.5 MEQ/L (3.5-5.1); TOTAL PROTEIN 6.6 GM/DL (6.4-8.2)
[2017-10-09 07:05] LABS: PLATELET COUNT, AUTOMATED 67 10^3/uL (150-450)
[2017-10-09 07:06] LABS: IMMATURE PLATELET FRACTION % 8.5 % (0.0-9.6)
[2017-10-09 09:08] VITALS: BP 120/62
[2017-10-09] MEDS: NADOLOL 20MG TABLET NG SCH (09:08)
[2017-10-09] MEDS: predniSONE 10 MG TAB PO SCH (09:08)
[2017-10-09] MEDS: FUROSEMIDE 40 MG TAB PO SCH (09:08)
[2017-10-09] MEDS: SPIRONOLACTONE 50 MG TAB PO SCH (09:08)
[2017-10-09] MEDS: rifAXIMin 550 MG TAB (XIFAXAN) NG SCH (09:08)
[2017-10-09] MEDS: LACTULOSE 20 GM/30 ML SYRUP UD PO SCH (09:09)
[2017-10-09] MEDS: PANTOPRAZOLE 40MG INJ (PROTONIX) (C9113) IV SCH (09:09)
[2017-10-09] MEDS ORDERED: FURO20TA2 PO (12:41)
[2017-10-09] MEDS ORDERED: PRED10TA2 PO (12:41)
[2017-10-09] MEDS ORDERED: LACT10SO3 PO (12:41)
--- NOTE | 2017-10-10 08:05 | DSES ---
DATE OF ADMISSION: 10/03/2017 DATE OF DISCHARGE: 10/09/2017 PRIMARY CARE PROVIDER: Jenna Taylor NP HOSPITALIST: Dr. Sanchez and Dr. Talbot FINAL DIAGNOSIS: 1. Acute hepatic encephalopathy. 2. Hyperammonia secondary to cirrhosis. 3. Liver cirrhosis of unclear etiology. Recent hospitalization at 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 Model for end-stage liver disease (MELD) score noted to be 25. 4. Coffee-ground emesis, resolved. Esophagogastroduodenoscopy was done during recent hospitalization, revealing single-column grade 2 esophageal varices. Hemoglobin and hematocrit are stable. 5. Gram-positive cocci bacteremia, Staphylococcus epidermididis, contaminant. 6. Chronic kidney disease, stage III. 7. Thrombocytopenia. 8. History of lupus. 9. Hypothyroidism. 10. Morbid obesity. HISTORY OF PRESENT ILLNESS: This is a 62-year-old female patient with underlying medical history of cirrhosis, possibly secondary to ESTRELLA, lupus, chronic kidney disease (CKD), and recent hospitalization at [facility] for pulmonary edema, cirrhosis. Patient was accompanied by her son and daughter on the day of admission at the bedside. Because patient was unresponsive, daughter and son provided the whole history initially. Son stated that patient had been unresponsive the whole day and was found on 10/03/2017 at 5:45 p.m. Patient was sleeping, unresponsive in bed. Son states that patient has always been calling, communicating with the family. Last known well on October 02, 9 o'clock at night. History of noncompliance with her medication. Patient does not like her medication. Recently placed on lactose while in [facility]. Later found out patient has only been taking in teaspoons. Patient has been more tired and groggy but not lethargic. Denies noticing any fevers, nausea, vomiting, or diarrhea. HOSPITAL COURSE: Patient was admitted to the hospital. Nasogastric (NG) tube placed. Given lactulose. Rifaximin was started. Ammonia level improved and normalized. Patient's mental status is back to baseline. Diet was advanced. Recently patient had esophagogastroduodenoscopy (EGD). Patient follows up with [facility] for possible liver transplant, MELD score of 25. Hemoglobin and hematocrit remained stage. Blood culture shows Staphylococcus epidermidis with contamination. Patient remained febrile. Kidney function remained at baseline. Home medications were continued. Patient currently passed physical therapy. Ready for discharge for further care as outpatient. Patient would like to live with her mother. Has requested for hospital bed, but does not qualify. Patient also does not qualify for oxygen as well. Furthermore, home health services was requested for wound care. Patient currently is back to baseline. Ready for discharge for further care. VITAL SIGNS: Temperature 98, pulse 74, respirations 18, blood pressure 120/62, pulse oximetry 96% on room air. LABORATORY DATA: WBC 6, hemoglobin and hematocrit 8.8/25.9, platelets 67. Chemistry: Sodium 137, potassium 4.5, chloride 102, bicarbonate 25, BUN 24, creatinine 1.33. PHYSICAL EXAMINATION: GENERAL: Patient alert, comfortable in no acute distress. HEENT: Normocephalic, atraumatic. PULMONARY: Bilaterally clear to auscultation. CARDIAC: Regular rate and rhythm, normal S1, S2. ABDOMEN: Soft and nontender. Positive bowel sounds. EXTREMITIES: No clubbing, cyanosis, or edema. DISCHARGE MEDICATIONS: - lactulose 20 mL by mouth three times a day - prednisone 10 mg by mouth daily - folic acid 1 mg by mouth daily - Synthroid 100 mcg by mouth daily - magnesium hydroxide by mouth as needed constipation - nadolol 20 mg by mouth daily - Protonix 40 mg by mouth daily - spironolactone 100 mg by mouth daily - Lasix 40 mg by mouth daily DISCHARGE INSTRUCTIONS: Patient is instructed to followup with primary care provider in 7 days, med surg nurse in 10 days, to have at least 3-4 bowel movements in a day. Return to the hospital if symptoms worsen. Home healthcare referral has been made.
== END 2017-10-09 14:12 | disposition home health service (06) | DRG 642 ==
LOC: M ED 19:15 → EDBD 19:15 → M ED INP 23:06 → M ICU 10-04 00:45 → M MSPAV 10-06 11:46
PROVIDERS: ADMIT Hospitalist; ATTEND Hospitalist
DX: E72.20 Disorder of urea cycle metabolism, unspecified (principal); K72.00 Acute and subacute hepatic failure without coma; D69.3 Immune thrombocytopenic purpura; K74.60 Unspecified cirrhosis of liver; N18.3 Chronic kidney disease, stage 3 (moderate); E66.01 Morbid (severe) obesity due to excess calories; E03.9 Hypothyroidism, unspecified; Z66 Do not resuscitate; K75.81 Nonalcoholic steatohepatitis (NASH); Z91.19 Patient's noncompliance with other medical treatment and regimen; Z79.899 Other long term (current) drug therapy; G25.81 Restless legs syndrome; M32.10 Systemic lupus erythematosus, organ or system involvement unspecified; Z88.5 Allergy status to narcotic agent; Z88.0 Allergy status to penicillin; Z88.8 Allergy status to other drugs, medicaments and biological substances; Z79.52 Long term (current) use of systemic steroids

== ENCOUNTER → 2017-10-18 | Outpatient (REF) | payer MEDICARE ==
[2017-10-18 14:25] LABS: BASO # 0.1 10^3/uL (0.0-0.2); EOS # 0.1 10^3/uL (0.0-0.50); EOS % 2.3 % (0.0-3.0); IMMATURE GRANULOCYTE # 0.1 10^3/uL (0-0); IMMATURE GRANULOCYTE % 0.8 % (0-0); LYMPH # 0.7 10^3/uL (1.5-4.5); LYMPH % 10.9 % (24.0-44.0); MEAN CORPUSCULAR HEMOGLOBIN 34.8 pg (27.0-33.0); MEAN CORPUSCULAR HGB CONC 34.1 g/dl (32.0-36.5); MEAN CORPUSCULAR VOLUME 102.2 fl (80.0-96.0); MONO % 16.9 % (0.0-5.0); NEUTROPHILS # 4.1 10^3/uL (1.8-7.7); NEUTROPHILS % 68.1 % (36.0-66.0); PLATELET COUNT, AUTOMATED 129 10^3/uL (150-450); RED CELL DISTRIBUTION WIDTH 21.7 % (11.5-14.5)
[2017-10-18 14:44] LABS: ALBUMIN 2.6 GM/DL (3.2-5.2); ALBUMIN/GLOBULIN RATIO 0.54 (1.00-1.93); ALKALINE PHOSPHATASE 161 U/L (45-117); ALT/SGPT 57 U/L (12-78); ANION GAP 4 MEQ/L (8-16); AST/SGOT 89 U/L (7-37); BILIRUBIN,TOTAL 5.8 MG/DL (0.2-1.0); BLOOD UREA NITROGEN 38 MG/DL (7-18); CARBON DIOXIDE LEVEL 32 MEQ/L (21-32); CHLORIDE LEVEL 99 MEQ/L (98-107); CREATININE FOR GFR 1.79 MG/DL (0.55-1.02); GLOMERULAR FILTRATION RATE 30.6 (>45); GLUCOSE, FASTING 95 MG/DL (80-110); MAGNESIUM LEVEL 2.1 MG/DL (1.8-2.4); SODIUM LEVEL 135 MEQ/L (136-145); TOTAL PROTEIN 7.4 GM/DL (6.4-8.2)
[2017-10-18 14:49] LABS: POTASSIUM SERUM 5.3 MEQ/L (3.5-5.1)
== END ==
LOC: M SHH 14:10
DX: K75.81 Nonalcoholic steatohepatitis (NASH) (principal)

== ENCOUNTER 2017-10-20 09:52 | Inpatient (IN) | payer MEDICARE ==
[2017-10-20] MEDS: NS 1,000 ML IV ×2 (09:59→12:15)
[2017-10-20 11:12] LABS: VENOUS BASE EXCESS 1.3 (-2.0-2.0); VENOUS HCO3 25.8 MEQ/L (23.0-27.0); VENOUS O2 SATURATION 79.1 % (60.0-80.0); VENOUS PARTIAL PRESSURE CO2 40.2 mmHg (38.0-50.0); VENOUS PARTIAL PRESSURE O2 48.4 mmHg (30.0-50.0); VENOUS PH 7.425 UNITS (7.330-7.430); VENOUS STANDARD HCO3 25.3 MEQ/L
[2017-10-20 11:13] LABS: HEMOGLOBIN 9.7 g/dl (12.0-16.0); MEAN CORPUSCULAR HEMOGLOBIN 34.6 pg (27.0-33.0); MEAN CORPUSCULAR HGB CONC 34.6 g/dl (32.0-36.5); PLATELET COUNT, AUTOMATED 118 10^3/uL (150-450); RED CELL DISTRIBUTION WIDTH 21.5 % (11.5-14.5); WHITE BLOOD COUNT 7.5 10^3/uL (4.0-10.0)
[2017-10-20 11:40] LABS: AMMONIA 95 uMOL/L (<32)
[2017-10-20 11:47] LABS: PLT CLUMPS? POS FLAG; POS COUNT POS FLAG
[2017-10-20 11:48] LABS: ADD MANUAL DIFFER YES; DIFF SLIDE NUMBER 120
[2017-10-20 11:49] LABS: ALBUMIN 2.4 GM/DL (3.2-5.2); ALBUMIN/GLOBULIN RATIO 0.48 (1.00-1.93); ALKALINE PHOSPHATASE 162 U/L (45-117); ALT/SGPT 53 U/L (12-78); ANION GAP 8 MEQ/L (8-16); AST/SGOT 89 U/L (7-37); BILIRUBIN,DIRECT 2.7 MG/DL (0.0-0.2); BILIRUBIN,TOTAL 5.4 MG/DL (0.2-1.0); BLOOD UREA NITROGEN 34 MG/DL (7-18); CALCIUM LEVEL 8.9 MG/DL (8.8-10.2); CARBON DIOXIDE LEVEL 28 MEQ/L (21-32); CHLORIDE LEVEL 100 MEQ/L (98-107); CPK CREATINE PHOSPHOKINASE 42 U/L (26-192); GLOMERULAR FILTRATION RATE 30.5 (>45); GLUCOSE, FASTING 95 MG/DL (80-110); SODIUM LEVEL 136 MEQ/L (136-145); TOTAL PROTEIN 7.4 GM/DL (6.4-8.2); TROPONIN I < 0.02 NG/ML (< 0.10)
[2017-10-20 11:50] LABS: BEDSIDE GLUCOSE 121 MG/DL (80-115)
[2017-10-20 11:51] LABS: OSMOLALITY SERUM 304 MOSM/KG (280-301)
[2017-10-20 11:52] LABS: ACETAMINOPHEN LEVEL < 2.0 UG/ML (10.0-30.0); BASOPHILS 2 % (0-4); EOSINOPHILS 1 % (0-5); LYMPHOCYTES 18 % (16-52); MONOCYTES 10 % (0-8); NEUTROPHILS 69 % (35-75); POTASSIUM SERUM 5.6 MEQ/L (3.5-5.1); SALICYLATE LEVEL < 1.7 MG/DL (5.0-30.0); TARGET CELLS 2+
[2017-10-20 11:53] LABS: ANISOCYTOSIS 1+; PLATELET ESTIMATE DECREASED (NORMAL); POIKILOCYTOSIS 1+
[2017-10-20 11:54] LABS: POLYCHROMASIA 1+
[2017-10-20 11:57] LABS: THYROID STIMULATING HORMONE 0.288 uIU/ML (0.358-3.740)
[2017-10-20 11:59] LABS: CK-MB VALUE MASS 1.4 NG/ML (0.0-3.6); MB/CK RELATIVE INDEX 3.33 (< OR =4)
[2017-10-20] MEDS: LACTULOSE 20 GM/30 ML SYRUP UD PO ×2 (12:15→22:34)
[2017-10-20 12:47] LABS: MAGNESIUM LEVEL 2.3 MG/DL (1.8-2.4)
[2017-10-20 14:31] LABS: INR 1.53; PROTHROMBIN TIME 18.8 SECONDS (12.4-14.5)
[2017-10-20 14:59] LABS: AMPHETAMINES LEVEL URINE NEGATIVE (NEGATIVE); BARBITURATES URINE NEGATIVE (NEGATIVE); BENZODIAZEPINES URINE NEGATIVE (NEGATIVE); CANNABINOIDS URINE NEGATIVE (NEGATIVE); COCAINE METABOLITE URINE NEGATIVE (NEGATIVE); METHADONE URINE NEGATIVE (NEGATIVE); OPIATES URINE NEGATIVE (NEGATIVE); PHENCYCLIDINE URINE NEGATIVE (NEGATIVE)
[2017-10-20] MEDS: FOLIC ACID 1 MG TAB PO (16:34)
[2017-10-20] MEDS: LEVOTHYROXINE 100MCG TABLET (0.1MG) PO (16:35)
[2017-10-20] MEDS: NADOLOL 20MG TABLET PO (16:35)
[2017-10-20] MEDS: D5W/0.45% SODIUM CHLORIDE 1,000 ML IV (16:35)
[2017-10-20] MEDS: PANTOPRAZOLE 40MG TAB (PROTONIX) PO (16:35)
[2017-10-20 20:16] LABS: HEMATOCRIT 26.4 % (36.0-47.0)
[2017-10-20 20:38] LABS: ANION GAP 8 MEQ/L (8-16); BLOOD UREA NITROGEN 33 MG/DL (7-18); CALCIUM LEVEL 8.4 MG/DL (8.8-10.2); CARBON DIOXIDE LEVEL 26 MEQ/L (21-32); CHLORIDE LEVEL 102 MEQ/L (98-107); GLOMERULAR FILTRATION RATE 40.7 (>45); GLUCOSE, FASTING 102 MG/DL (80-110); PHOSPHORUS LEVEL 3.4 MG/DL (2.5-4.9); POTASSIUM SERUM 4.9 MEQ/L (3.5-5.1); SODIUM LEVEL 136 MEQ/L (136-145)
[2017-10-20] MEDS ORDERED: HEPARIN SOD (PORCINE) 5000 UNITS/ML VIAL SQ (21:00)
[2017-10-20] MEDS: rifAXIMin 550 MG TAB (XIFAXAN) PO (22:35)
[2017-10-21 05:36] LABS: HEMATOCRIT 26.2 % (36.0-47.0); MEAN CORPUSCULAR HEMOGLOBIN 34.1 pg (27.0-33.0); MEAN CORPUSCULAR HGB CONC 34.4 g/dl (32.0-36.5); MEAN CORPUSCULAR VOLUME 99.2 fl (80.0-96.0); PLATELET COUNT, AUTOMATED 139 10^3/uL (150-450); RED BLOOD COUNT 2.64 10^6/uL (4.00-5.40); RED CELL DISTRIBUTION WIDTH 21.7 % (11.5-14.5); WHITE BLOOD COUNT 5.6 10^3/uL (4.0-10.0)
[2017-10-21 05:49] LABS: AMMONIA 99 uMOL/L (<32)
[2017-10-21] MEDS: LEVOTHYROXINE 100MCG TABLET (0.1MG) PO (06:00)
[2017-10-21] MEDS: LACTULOSE 20 GM/30 ML SYRUP UD PO ×3 (06:00→18:34)
[2017-10-21 06:02] LABS: ALBUMIN 2.1 GM/DL (3.2-5.2); ALBUMIN/GLOBULIN RATIO 0.44 (1.00-1.93); ALKALINE PHOSPHATASE 147 U/L (45-117); ALT/SGPT 50 U/L (12-78); ANION GAP 10 MEQ/L (8-16); AST/SGOT 74 U/L (7-37); BILIRUBIN,TOTAL 5.9 MG/DL (0.2-1.0); BLOOD UREA NITROGEN 30 MG/DL (7-18); CALCIUM LEVEL 8.5 MG/DL (8.8-10.2); CARBON DIOXIDE LEVEL 26 MEQ/L (21-32); CHLORIDE LEVEL 104 MEQ/L (98-107); CREATININE FOR GFR 1.28 MG/DL (0.55-1.02); GLOMERULAR FILTRATION RATE 45.1 (>45); GLUCOSE, FASTING 87 MG/DL (80-110); POTASSIUM SERUM 4.3 MEQ/L (3.5-5.1); SODIUM LEVEL 140 MEQ/L (136-145); T UPTAKE 47 % (30-39); THYROID STIMULATING HORMONE 0.252 uIU/ML (0.358-3.740); THYROXINE (T4) 6.4 UG/DL (4.5-12.0); TOTAL PROTEIN 6.9 GM/DL (6.4-8.2)
[2017-10-21] MEDS: rifAXIMin 550 MG TAB (XIFAXAN) PO ×2 (08:03→21:31)
[2017-10-21] MEDS: PANTOPRAZOLE 40MG TAB (PROTONIX) PO (08:03)
[2017-10-21] MEDS: FOLIC ACID 1 MG TAB PO (08:04)
[2017-10-21] MEDS: NADOLOL 20MG TABLET PO (08:04)
[2017-10-21] MEDS ORDERED: ENOXAPARIN 40 MG/0.4 ML SYRINGE (J1650) SC (09:00)
[2017-10-22] MEDS: LACTULOSE 20 GM/30 ML SYRUP UD PO ×4 (05:40→17:59)
[2017-10-22] MEDS: LEVOTHYROXINE 75MCG TABLET (0.075MG) PO (05:40)
[2017-10-22 06:36] LABS: HEMATOCRIT 28.2 % (36.0-47.0); HEMOGLOBIN 9.4 g/dl (12.0-16.0); MEAN CORPUSCULAR HEMOGLOBIN 34.1 pg (27.0-33.0); MEAN CORPUSCULAR HGB CONC 33.3 g/dl (32.0-36.5); MEAN CORPUSCULAR VOLUME 102.2 fl (80.0-96.0); PLATELET COUNT, AUTOMATED 125 10^3/uL (150-450); RED BLOOD COUNT 2.76 10^6/uL (4.00-5.40); RED CELL DISTRIBUTION WIDTH 21.9 % (11.5-14.5); WHITE BLOOD COUNT 5.9 10^3/uL (4.0-10.0)
[2017-10-22 07:04] LABS: AMMONIA 42 uMOL/L (<32)
[2017-10-22 07:04] LABS: ALBUMIN 1.9 GM/DL (3.2-5.2); ALKALINE PHOSPHATASE 137 U/L (45-117); ALT/SGPT 44 U/L (12-78); ANION GAP 6 MEQ/L (8-16); AST/SGOT 73 U/L (7-37); BILIRUBIN,TOTAL 6.3 MG/DL (0.2-1.0); BLOOD UREA NITROGEN 26 MG/DL (7-18); CALCIUM LEVEL 8.7 MG/DL (8.8-10.2); CARBON DIOXIDE LEVEL 25 MEQ/L (21-32); CHLORIDE LEVEL 106 MEQ/L (98-107); CREATININE FOR GFR 1.29 MG/DL (0.55-1.02); GLOMERULAR FILTRATION RATE 44.7 (>45); GLUCOSE, FASTING 70 MG/DL (80-110); POTASSIUM SERUM 4.7 MEQ/L (3.5-5.1); SODIUM LEVEL 137 MEQ/L (136-145); TOTAL PROTEIN 6.6 GM/DL (6.4-8.2)
[2017-10-22] MEDS: rifAXIMin 550 MG TAB (XIFAXAN) PO ×2 (08:37→21:33)
[2017-10-22] MEDS: FOLIC ACID 1 MG TAB PO (08:38)
[2017-10-22] MEDS: NADOLOL 20MG TABLET PO (08:38)
[2017-10-22] MEDS: PANTOPRAZOLE 40MG TAB (PROTONIX) PO (08:38)
[2017-10-23] MEDS: LACTULOSE 20 GM/30 ML SYRUP UD PO ×4 (00:03→16:29)
[2017-10-23] MEDS: LEVOTHYROXINE 75MCG TABLET (0.075MG) PO (06:13)
[2017-10-23 07:23] LABS: HEMATOCRIT 25.6 % (36.0-47.0); HEMOGLOBIN 8.6 g/dl (12.0-16.0); MEAN CORPUSCULAR HEMOGLOBIN 34.1 pg (27.0-33.0); MEAN CORPUSCULAR HGB CONC 33.6 g/dl (32.0-36.5); MEAN CORPUSCULAR VOLUME 101.6 fl (80.0-96.0); PLATELET COUNT, AUTOMATED 120 10^3/uL (150-450); RED BLOOD COUNT 2.52 10^6/uL (4.00-5.40); WHITE BLOOD COUNT 5.3 10^3/uL (4.0-10.0)
[2017-10-23 07:49] LABS: AMMONIA 55 uMOL/L (<32)
[2017-10-23 07:52] LABS: ALBUMIN 1.9 GM/DL (3.2-5.2); ALBUMIN/GLOBULIN RATIO 0.41 (1.00-1.93); ALKALINE PHOSPHATASE 136 U/L (45-117); ALT/SGPT 45 U/L (12-78); ANION GAP 8 MEQ/L (8-16); AST/SGOT 73 U/L (7-37); BILIRUBIN,TOTAL 4.9 MG/DL (0.2-1.0); BLOOD UREA NITROGEN 21 MG/DL (7-18); CALCIUM LEVEL 8.6 MG/DL (8.8-10.2); CARBON DIOXIDE LEVEL 25 MEQ/L (21-32); CHLORIDE LEVEL 105 MEQ/L (98-107); CREATININE FOR GFR 1.34 MG/DL (0.55-1.02); GLOMERULAR FILTRATION RATE 42.8 (>45); GLUCOSE, FASTING 101 MG/DL (80-110); SODIUM LEVEL 138 MEQ/L (136-145); TOTAL PROTEIN 6.5 GM/DL (6.4-8.2)
[2017-10-23] MEDS: FOLIC ACID 1 MG TAB PO (09:46)
[2017-10-23] MEDS: rifAXIMin 550 MG TAB (XIFAXAN) PO ×2 (09:46→21:06)
[2017-10-23] MEDS: PANTOPRAZOLE 40MG TAB (PROTONIX) PO (09:46)
[2017-10-23] MEDS: NADOLOL 20MG TABLET PO (09:47)
[2017-10-23] MEDS: GABAPENTIN 100 MG CAP PO (23:14)
[2017-10-24] MEDS: LACTULOSE 20 GM/30 ML SYRUP UD PO ×3 (00:04→12:27)
[2017-10-24] MEDS: LEVOTHYROXINE 75MCG TABLET (0.075MG) PO (05:35)
[2017-10-24 06:38] LABS: HEMATOCRIT 27.1 % (36.0-47.0); HEMOGLOBIN 9.1 g/dl (12.0-16.0); MEAN CORPUSCULAR HGB CONC 33.6 g/dl (32.0-36.5); MEAN CORPUSCULAR VOLUME 101.1 fl (80.0-96.0); PLATELET COUNT, AUTOMATED 119 10^3/uL (150-450); RED BLOOD COUNT 2.68 10^6/uL (4.00-5.40); RED CELL DISTRIBUTION WIDTH 20.7 % (11.5-14.5); WHITE BLOOD COUNT 5.7 10^3/uL (4.0-10.0)
[2017-10-24 06:56] LABS: AMMONIA 80 uMOL/L (<32)
[2017-10-24 07:34] LABS: ALBUMIN 1.9 GM/DL (3.2-5.2); ALBUMIN/GLOBULIN RATIO 0.42 (1.00-1.93); ALKALINE PHOSPHATASE 138 U/L (45-117); ALT/SGPT 47 U/L (12-78); ANION GAP 6 MEQ/L (8-16); AST/SGOT 87 U/L (7-37); BILIRUBIN,TOTAL 4.6 MG/DL (0.2-1.0); BLOOD UREA NITROGEN 25 MG/DL (7-18); CALCIUM LEVEL 8.3 MG/DL (8.8-10.2); CARBON DIOXIDE LEVEL 27 MEQ/L (21-32); CHLORIDE LEVEL 103 MEQ/L (98-107); CREATININE FOR GFR 1.57 MG/DL (0.55-1.02); GLOMERULAR FILTRATION RATE 35.7 (>45); GLUCOSE, FASTING 93 MG/DL (80-110); POTASSIUM SERUM 4.7 MEQ/L (3.5-5.1); SODIUM LEVEL 136 MEQ/L (136-145); TOTAL PROTEIN 6.4 GM/DL (6.4-8.2)
[2017-10-24] MEDS: PANTOPRAZOLE 40MG TAB (PROTONIX) PO (09:12)
[2017-10-24] MEDS: rifAXIMin 550 MG TAB (XIFAXAN) PO (09:12)
[2017-10-24] MEDS: FOLIC ACID 1 MG TAB PO (09:12)
[2017-10-24] MEDS: NADOLOL 20MG TABLET PO (09:12)
== END 2017-10-24 16:53 | disposition home or self-care (01) | DRG 441 ==
LOC: M ED 09:52 → M ED INP 12:52 → M MSPAV 16:00
PROVIDERS: Hospitalist
DX: K72.90 Hepatic failure, unspecified without coma (principal); G93.41 Metabolic encephalopathy; N17.9 Acute kidney failure, unspecified; D69.3 Immune thrombocytopenic purpura; I85.10 Secondary esophageal varices without bleeding; K75.81 Nonalcoholic steatohepatitis (NASH); E87.5 Hyperkalemia; Z66 Do not resuscitate; E03.9 Hypothyroidism, unspecified; G25.81 Restless legs syndrome; K74.69 Other cirrhosis of liver; N18.9 Chronic kidney disease, unspecified; M32.10 Systemic lupus erythematosus, organ or system involvement unspecified; Z79.899 Other long term (current) drug therapy; Z88.0 Allergy status to penicillin; Z88.5 Allergy status to narcotic agent; Z88.8 Allergy status to other drugs, medicaments and biological substances; D64.9 Anemia, unspecified; K21.9 Gastro-esophageal reflux disease without esophagitis; E66.01 Morbid (severe) obesity due to excess calories